=== PATIENT | male | born 1955 | race Caucasian/White ===

== ENCOUNTER 2021-11-07 09:04 | Day surgery (SDC) | payer MEDICARE ==
[~2021-11-07] VITALS: Ht 188 cm; Wt 106.8 kg
[~2021-11-07 09:04] MED LIST: VENTOLIN HFA18 GM INH
[2021-11-07] MEDS ORDERED: ZYRTEC10 MG PO (09:48)
--- NOTE | 2021-11-07 12:50 | NUR ---
11/07/21 1250 Suzy Leahy 1150 PT ARRIVED TO PACU ON 2L VIA MASK, VSS. O2 REMOVED. PT WAKES EASILY AND IS REORIENTED TO PACU. 1205 MD AT BEDSIDE TALKING TO PT. 1230 PT SITTING ON EDGE OF BED AND SIPPING SODA PER REQUEST. DC INSTRUCTIONS GIVEN AND PT GETTING DRESSED. 1236 PT DC WITH PAPERWORK AND DC INSTRUCTIONS GIVEN TO .
--- NOTE | 2021-11-08 13:12 | OR ---
[facility] [address], [place] [address] Signed DATE OF OPERATION: 11/07/2021 SURGEON: Arnie Rosado MD PREOPERATIVE DIAGNOSIS: History of tubular adenoma in 2018. POSTOPERATIVE DIAGNOSES: 1. Small polyp at 70 cm (excised). 2. Internal hemorrhoids. PROCEDURE: Total colonoscopy to cecum with cold morcellation polypectomy x1. ANESTHESIA: Intravenous sedation, fentanyl 150 mcg and Versed 10 mg (total). INDICATIONS: This 66-year-old white man is a former patient of Dr. Sutton of [place], [place], not currently with a PCP of any type. He has undergone colonoscopy in the past including last colonoscopy with ca in 2018, at which time he was found to have a tubular adenoma. He has been recommended to have a repeat colonoscopy in three years based on that finding. He has no current symptoms of bleeding, diarrhea, or constipation. He has no known family history of colon cancer. He understands the risks of bleeding, infection, and perforation related to colon evaluation and wished to proceed. FINDINGS: The prep was good. Complete colonoscopy was undertaken of the cecum without question. Had a rather small polyp at approximately 70 cm, which was excised with cold morcellation technique. Internal hemorrhoids were also noted on retroflexed view. There were no other findings of concern. DESCRIPTION OF PROCEDURE: The patient was brought to the surgical endoscopy suite and placed in lateral decubitus position, given intravenous sedation to the point of slurred speech and nystagmus. Digital rectal examination was normal. Full cardiopulmonary monitoring was maintained. An Olympus video colonoscope was passed into the rectum and manipulated throughout the colon, ultimately intubating the cecum itself. The ileocecal valve and appendiceal orifice were normal. The scope was withdrawn from that point. Irrigation undertaken as Electronically Signed By: ARNIE ROSADO MD 11/08/21 1312 PATIENT NAME: ARNIE GRAHAM OPERATIVE REPORT DATE OF : 57 REPORT #: [id number] PHYSICIAN: ARNIE ROSADO MD PCP: OTHER PCP REPORT IS CONFIDENTIAL AND NOT TO BE RELEASED WITHOUT AUTHORIZATION [facility] [address], [place] [address] Signed necessary. At approximately 70 cm from the anal verge, in the proximal descending colon was a small polyp, possibly hyperplastic. Narrow-band imaging confirmed this to clearly be a polyp of some type. The lesion was excised with multiple bites of cold morcellation device, completely excising it. The scope was further withdrawn, remaining colon was normal except on retroflexed view, where internal hemorrhoidal changes were noted. The scope was removed. The patient was taken to the recovery room in good condition. CONCLUDING DIAGNOSES: 1. Small polyp, left colon. 2. Internal hemorrhoids. PLAN: Recommend repeat colonoscopy in 5 years or sooner if symptoms should occur. He will return to the ongoing care of a primary care provider of his choice in [place], [place]. MD PATRICIA Barry/PASTOR /[id number] cc: [facility] Copies: ~ Electronically Signed By: ARNIE ROSADO MD 11/08/21 1312 PATIENT NAME: ARNIE GRAHAM OPERATIVE REPORT DATE OF : 57 REPORT #: [id number] PHYSICIAN: ARNIE ROSADO MD PCP: OTHER PCP REPORT IS CONFIDENTIAL AND NOT TO BE RELEASED WITHOUT AUTHORIZATION
--- NOTE | 2021-11-08 15:06 | PATH ---
[facility] [address] [place], [place] [address] Signed SPECIMEN(S): A COLON POLYP AT 70 CM SPECIMEN SOURCE: A. COLON POLYP AT 70 CM CLINICAL HISTORY: History of polyps. Postop: Hyperplastic polyp x 1, internal hemorrhoids FINAL PATHOLOGIC DIAGNOSIS: Colon, polyp at 70 cm, polypectomy: - Colonic mucosa with focal hyperplastic mucosal changes. - Negative for dysplasia or malignancy. NAL:cml:C2NR MICROSCOPIC EXAMINATION: Histologic sections of all submitted blocks are examined by light microscopy. These findings, together with the gross examination, support the pathologic diagnosis. GROSS DESCRIPTION: The specimen, labeled "JK," and designated on the requisition "colon polyp at 70 cm," is received in formalin and consists of two machado soft tissue fragments that measure 0.3 cm in greatest dimension. The specimen is entirely submitted in cassette (A1). AT (under the direct supervision of a pathologist) The Gross Description was prepared using a voice recognition system. The report was reviewed for accuracy; however, sound-alike word errors, addition and/or deletions may occur. If there is any question about this report, please contact Client Services. PERFORMING LABORATORY: The technical component was performed by [facility], [address] [place] [id number] (CLIA# [id number]). [facility], [address] [place] [id number] (CLIA# [id number]). Diagnostician: Trixie Medina MD Pathologist Electronically Signed 11/08/2021 PATIENT NAME: ARNIE GRAHAM PATHOLOGY DATE OF : 57 REPORT #: [id number] PHYSICIAN: [facility] PCP: OTHER PCP REPORT IS CONFIDENTIAL AND NOT TO BE RELEASED WITHOUT AUTHORIZATION [address] [place] [employer] [employer], [place] [address] Signed Copies: ~ PATIENT NAME: ARNIE GRAHAM PATHOLOGY DATE OF : 57 REPORT #: [id number] PHYSICIAN: [facility] PCP: OTHER PCP REPORT IS CONFIDENTIAL AND NOT TO BE RELEASED WITHOUT AUTHORIZATION
== END 2021-11-07 12:36 | disposition home or self-care (01) ==
LOC: OPS 09:04 → DS 09:04 → OPS 11:00 → DS 12:40 → OPS 13:00 → DS 13:00
PROVIDERS: ATTEND Surgery
PROC: 0DBH8ZX Excision of Cecum, Via Natural or Artificial Opening Endoscopic, Diagnostic (ICD-10-PCS; principal; 2021-11-07 11:00)
DX: Z12.11 Encounter for screening for malignant neoplasm of colon (principal); K63.5 Polyp of colon; K64.8 Other hemorrhoids; Z20.822 Contact with and (suspected) exposure to COVID-19
CPT/HCPCS: 99153; G0500; J2250; J3010; U0003